=== PATIENT | female | born 1990 | race Hispanic/Latino ===

== ENCOUNTER 2023-05-10 09:34 | Emergency (ER) | payer OTHER ==
[2023-05-10] MEDS ORDERED: Ketorolac Tromethamine 30 MG (1 mL) VIAL ONE (10:12)
== END 2023-05-10 11:48 | disposition home or self-care (01) ==
LOC: NAV ERS 09:34
DX: G44.209 Tension-type headache, unspecified, not intractable (principal)
CPT/HCPCS: 96374; J1885

== ENCOUNTER 2024-12-30 10:01 | Emergency (ER) | payer BC, OTHER ==
[2024-12-30] MEDS ORDERED: Ibuprofen 800 MG TAB ONE (10:23)
== END 2024-12-30 10:42 | disposition home or self-care (01) ==
LOC: NAV ERS 10:01
DX: B34.9 Viral infection, unspecified (principal)
CPT/HCPCS: 87081; 87430; 99283